=== PATIENT | female | born 1995 | race Caucasian/White ===

== ENCOUNTER → 2019-12-22 13:40 | Outpatient (BNVA) | payer MEDICAID, SELFPAY | PROVIDERS: Family Provider Family Medicine; PCP Family Medicine; Visit Provider Nurse Practitioner Family | DX: Z11.59 Encounter for screening for other viral diseases (principal) | CPT/HCPCS: 87635 ==

== ENCOUNTER → 2020-03-15 17:50 | Outpatient (BNVA) | payer OTHER, SELFPAY | PROVIDERS: Family Provider Family Medicine; PCP Family Medicine; Visit Provider Nurse Practitioner Family | DX: N39.0 Urinary tract infection, site not specified (principal) | CPT/HCPCS: 81000; 81025 ==

== ENCOUNTER → 2020-04-06 10:44 | Outpatient (BNVA) | payer MEDICAID, OTHER, SELFPAY | PROVIDERS: Family Provider Family Medicine; PCP Family Medicine; Visit Provider Nurse Practitioner Women's Health | DX: Z34.90 Encounter for supervision of normal pregnancy, unspecified, unspecified trimester (principal) | CPT/HCPCS: 81000 ==

== ENCOUNTER → 2020-04-24 14:58 | Outpatient (BNVA) | payer MEDICAID, SELFPAY | PROVIDERS: Family Provider Family Medicine; PCP Family Medicine; Visit Provider Obstetrics & Gynecology | DX: O99.211 Obesity complicating pregnancy, first trimester (principal); Z3A.10 10 weeks gestation of pregnancy | CPT/HCPCS: 80307; 81000; 85027; 86592; 86762; 86803; 86850; 86900; 87086; 87340; 87806 ==

== ENCOUNTER → 2020-05-02 14:26 | Outpatient (BNVA) | payer MEDICAID, OTHER, SELFPAY | PROVIDERS: Family Provider Family Medicine; PCP Family Medicine; Visit Provider Obstetrics & Gynecology | DX: Z34.90 Encounter for supervision of normal pregnancy, unspecified, unspecified trimester (principal) | CPT/HCPCS: 81000; 87491; 87591; 88175 ==

== ENCOUNTER → 2020-06-05 08:01 | Outpatient (BNVA) | payer MEDICAID, OTHER, SELFPAY | PROVIDERS: Family Provider Family Medicine; Visit Provider Nurse Practitioner Women's Health | DX: O23.40 Unspecified infection of urinary tract in pregnancy, unspecified trimester (principal); O99.320 Drug use complicating pregnancy, unspecified trimester | CPT/HCPCS: 80307; 81000; 87086 ==

== ENCOUNTER → 2020-07-03 09:22 | Outpatient (BNVA) | payer MEDICAID, OTHER, SELFPAY | PROVIDERS: Family Provider Family Medicine; Visit Provider Obstetrics & Gynecology | DX: Z34.90 Encounter for supervision of normal pregnancy, unspecified, unspecified trimester (principal) | CPT/HCPCS: 81000 ==

== ENCOUNTER → 2020-08-01 09:46 | Outpatient (BNVA) | payer MEDICAID, SELFPAY | PROVIDERS: Family Provider Family Medicine; Visit Provider Nurse Practitioner Women's Health | DX: O99.320 Drug use complicating pregnancy, unspecified trimester (principal); F12.90 Cannabis use, unspecified, uncomplicated; Z3A.24 24 weeks gestation of pregnancy | CPT/HCPCS: 81000 ==

== ENCOUNTER → 2020-08-27 09:54 | Outpatient (BNVA) | payer MEDICAID, SELFPAY | PROVIDERS: Family Provider Family Medicine; Visit Provider Obstetrics & Gynecology | DX: O99.320 Drug use complicating pregnancy, unspecified trimester (principal); O36.60X0 Maternal care for excessive fetal growth, unspecified trimester, not applicable or unspecified | CPT/HCPCS: 80307; 81000; 82950; 85025 ==

== ENCOUNTER → 2020-09-11 11:59 | Outpatient (BNVA) | payer MEDICAID, SELFPAY | PROVIDERS: Family Provider Family Medicine; Visit Provider Obstetrics & Gynecology | DX: O16.2 Unspecified maternal hypertension, second trimester (principal); O99.320 Drug use complicating pregnancy, unspecified trimester; O36.60X0 Maternal care for excessive fetal growth, unspecified trimester, not applicable or unspecified | CPT/HCPCS: 82570; 84156; 84315 ==

== ENCOUNTER → 2020-09-25 08:58 | Outpatient (BNVA) | payer MEDICAID, SELFPAY | PROVIDERS: Family Provider Family Medicine; Visit Provider Obstetrics & Gynecology | DX: O16.9 Unspecified maternal hypertension, unspecified trimester (principal); O36.60X0 Maternal care for excessive fetal growth, unspecified trimester, not applicable or unspecified; Z3A.00 Weeks of gestation of pregnancy not specified | CPT/HCPCS: 81000 ==

== ENCOUNTER → 2020-10-09 15:11 | Outpatient (BNVA) | payer MEDICAID, SELFPAY | PROVIDERS: Family Provider Family Medicine; Visit Provider Nurse Practitioner Women's Health | DX: O16.9 Unspecified maternal hypertension, unspecified trimester (principal); O36.60X0 Maternal care for excessive fetal growth, unspecified trimester, not applicable or unspecified; O99.320 Drug use complicating pregnancy, unspecified trimester | CPT/HCPCS: 81000 ==

== ENCOUNTER → 2020-10-22 13:04 | Outpatient (BNVA) | payer MEDICAID, SELFPAY | PROVIDERS: Family Provider Family Medicine; Visit Provider Obstetrics & Gynecology | DX: O16.9 Unspecified maternal hypertension, unspecified trimester (principal); O99.320 Drug use complicating pregnancy, unspecified trimester | CPT/HCPCS: 81000; 87081 ==

== ENCOUNTER 2020-10-28 19:20 | Outpatient (CLI) | payer MEDICAID, SELFPAY ==
[2020-10-28] VITALS (9 sets, daily range): BP systolic 112–148; BP diastolic 57–85; PULSE 88–112; RESP 17; TEMP 36.8–36.9; BMI 38.2
[2020-10-28 20:17] LABS: Basophils % 0.2 %; Eosinophils # 0.1 10^3/uL (0.0-0.8); Eosinophils % 0.8 %; Hematocrit 35.1 % (37.0-47.0); Hemoglobin 11.3 g/dL (11.5-15.3); Lymphocytes # 2.5 10^3/uL (0.8-4.8); Lymphocytes % 28.6 %; Mean Corpuscular HGB Conc 32.2 g/dL (30.0-36.0); Mean Corpuscular Hemoglobin 26.8 pg (28.0-34.0); Mean Corpuscular Volume 83.2 fL (81-99); Mean Platelet Volume 9.1 fL (7.4-10.4); Monocytes # 1.1 10^3/uL (0.2-0.9); Monocytes % 12.3 %; Neutrophils # 4.91 10^3/uL (1.8-7.7); Neutrophils % 57.1 %; Nucleated Red Blood Cells % 0 %; Platelet Count 247 10^3/cmm (130-400); Red Blood Count 4.22 10^6/uL (4.1-5.3); Red Cell Distribution Width 13.2 % (12.1-15.1); White Blood Count 8.6 10^3/uL (4.0-10.0)
[2020-10-28 20:24] LABS: Add Urine Microscopic? YES; Bilirubin Urine Neg (Negative); Blood Urine Neg (Negative); Glucose Urine UA Norm (Normal); Ketones Urine Negative (Negative); Leukocyte Esterase Urine Negative (Negative); Nitrate Urine Negative (Negative); Protein Urine Neg (Negative); Urine Color Yellow (Yellow); Urobilinogen Urine Norm (Negative); pH Urine 7 (5-7)
[2020-10-28 20:26] LABS: Amorphous Sediment Urine 4+ /hpf; Bacteria Urine TRACE /hpf; RBC Urine 0-4 /hpf (0-2); Squamous Epithelial Cell Urine 0-4 /hpf (0-5); WBC Urine 0-4 /hpf (0-5)
[2020-10-28 20:27] LABS: Add Urine Culture? No
[2020-10-28 20:36] LABS: Alanine Aminotransferase 8 U/L (0-33); Albumin Level 3.4 g/dL (3.5-5.2); Alkaline Phosphatase 110 IU/L (35-105); Anion Gap 11.8 (5-19); Aspartate Amino Transferase 11 U/L (0-32); Blood Urea Nitrogen 6 mg/dL (6-20); Calcium 8.5 mg/dL (8.5-10.5); Carbon Dioxide 24 mmol/L (22-29); Chloride 107 mmol/L (98-107); Globulin 2.7 g/dL (1.3-4.6); Glomerular Filtration Rate 122.8 mL/min (90-130); Glucose 74 mg/dL (65-115); Osmolality Calculated 284 mOsm/kg (285-295); Potassium 3.8 mmol/L (3.5-5.1); Sodium 139 mmol/L (136-145); Total Bilirubin 0.2 mg/dL (0.15-1.2); Total Protein 6.1 g/dL (6.6-8.7)
[2020-10-28 20:38] LABS: UPRO/UCREAT Ratio 0.08 mg/mg CR; Urine Creatinine 95 mg/dL (28-217); Urine Protein Random 8 mg/dL
== END 2020-10-28 21:18 | disposition home or self-care (01) ==
LOC: OPOB 19:22 → OBGYN 19:23
PROVIDERS: Family Provider Family Medicine; Visit Provider Obstetrics & Gynecology
DX: O16.9 Unspecified maternal hypertension, unspecified trimester (principal); Z3A.00 Weeks of gestation of pregnancy not specified
CPT/HCPCS: 36415; 59025; 80053; 81001; 82570; 84156; 84550; 85025; 99211

== ENCOUNTER 2020-10-30 16:40 | Inpatient (IN) | payer MEDICAID, SELFPAY ==
[2020-10-30] VITALS (13 sets, daily range): BP systolic 104–141; BP diastolic 54–87; PULSE 65–120; RESP 17; TEMP 36.5–36.7; O2SAT 100; BMI 38.0
--- NOTE | 2020-10-30 17:44 | P.HP_ITS ---
Providers/Chief Complaint Admitting Physician: Fariba Jean Baptiste MD Primary Care Provider: Arslan Levi MD Chief Complaint: induction, Gestational Hypertension History of Present Illness Gautam Hutson is a 25 year old female at 37 4/7 weeks who presents for induction of labor at term for gestational hypertension. Her is complicated by gestational hypertension starting at 30 weeks, GBS positive and marijuana use. Her blood pressures have been labile and she has been on bedrest. Today, all of her blood pressures are elevated. She was sent from the clinic for induction of labor Review of Systems General: Reports: 10 or more systems reviewed and unremarkable except in HPI and below Medications/Allergies Home Medications Medication Instructions Recorded Confirmed Last Taken Type prenat.vits,agustin,bfw-kefm-bpkln 1 tab PO DAILY 04/06/20 10/30/20 10/27/20 History Allergies Allergy/AdvReac Type Severity Reaction Status Date / Time No Known Allergies Allergy Verified 10/30/20 12:09 PFSH Acute PFSH: Medical History No pertinent past medical history Denies diabetes, asthma, hypertension, seizures, DVT/PE. PMD: None-refer to Dr. Kim on 04/24/2020 Surgical History No pertinent past surgical history Family History Grandfather Diabetes Paternal Mother Hypertension Grandmother Stroke Maternal Denies family history of Colon cancer Ovarian cancer Heart disease Breast cancer Bleeding disorder Uterine cancer Thyroid disease Social History Additional social history: - Tobacco use: former-- quit mid March 2020-- was smoking 0.5-1PPD Alcohol use: Socially prior to Drug use: denies Vitals/I&O/Wt Last Vital Signs Temp 98.1 F 10/30/20 17:05 Pulse 95 10/30/20 17:36 BP 132/85 10/30/20 17:36 Physical Exam Const: COMMON NORMALS: no acute distress, average body habitus, patient oriented x3, no limitations, healthy appearing and alert GENERAL APPEARANCE: cooperative, comfortable, well kempt and well developed ORIENTATION/CONSCIOUSNESS: Yes awake, Yes oriented to person, Yes oriented to place and Yes oriented to time Neck/C-Spine: COMMON NORMALS: full ROM and supple Resp: COMMON NORMALS: normal respiratory effort EFFORT & INSPECTION: Yes able to speak in complete sentences GI: COMMON NORMALS: Soft to palpation and non-tender Extremity: NARRATIVE EXTREMITY EXAM: 1+ pedal edema Psych: COMMON NORMALS: mental status grossly normal, Normal thought process present, cooperative and normal affect APPEARANCE: Yes grossly normal and Yes well kempt ATTITUDE: Yes calm and Yes engaged ACTIVITY/MOTOR BEHAVIOR: Yes appropriate eye contact SPEECH: Yes normal speech A&P Assessment and plan (1) Elevated blood pressure affecting , antepartum: plan induction of labor with cytotec and then pitocin anticipate will watch for worsening BP or signs of preeclampsia Status: Acute (2) Drug use affecting : Status: Acute (3) Supervision of normal : Status: Acute Attestations Medical Necessity Statement*: she will be delivering. she will be here for two midnights. 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
[2020-10-30] MEDS: acetaminophen 325 mg Tablet 650 MG PO (18:03)
[2020-10-30 18:04] LABS: Basophils % 0.1 %; Eosinophils % 0.2 %; Hematocrit 35.3 % (37.0-47.0); Hemoglobin 11.4 g/dL (11.5-15.3); Lymphocytes # 2.1 10^3/uL (0.8-4.8); Lymphocytes % 23.3 %; Mean Corpuscular HGB Conc 32.3 g/dL (30.0-36.0); Mean Corpuscular Hemoglobin 26.6 pg (28.0-34.0); Mean Corpuscular Volume 82.3 fL (81-99); Mean Platelet Volume 9.2 fL (7.4-10.4); Monocytes # 0.8 10^3/uL (0.2-0.9); Monocytes % 9.1 %; Neutrophils # 5.84 10^3/uL (1.8-7.7); Neutrophils % 66.5 %; Nucleated Red Blood Cells % 0 %; Platelet Count 245 10^3/cmm (130-400); Red Blood Count 4.29 10^6/uL (4.1-5.3); Red Cell Distribution Width 13.2 % (12.1-15.1); White Blood Count 8.8 10^3/uL (4.0-10.0)
[2020-10-30] MEDS: miSOPROStol 100 mcg tablet 25 MCG VAGINAL ×2 (18:04→22:45)
[2020-10-30] MEDS: ampicillin 2,000 MG in sodium chloride 0.9% (plus) 50 ML 100 MG IV (18:52)
[2020-10-30 19:21] LABS: Amphetamines Screen Urine Negative (Negative); Barbiturates Screen Urine Negative (Negative); Benzodiazepines Screen Urine Negative (Negative); Cocaine Screen Urine Negative (Negative); Opiate Screen Urine Negative (Negative); PCP Screen Urine Negative (Negative); THC Screen Urine Negative (Negative)
[2020-10-30] MEDS: lactated ringers 1,000 ML 999 ML IV (20:00)
[2020-10-30] MEDS: ampicillin 1,000 MG in sodium chloride 0.9% (plus) 50 ML 100 MG IV (22:39)
[2020-10-31] VITALS (58 sets, daily range): BP systolic 114–141; BP diastolic 57–91; PULSE 59–95; RESP 15–18; TEMP 36.1–36.7; O2SAT 98–100
[2020-10-31] MEDS: ampicillin 1,000 MG in sodium chloride 0.9% (plus) 50 ML 100 MG IV ×6 (02:23→23:29)
[2020-10-31] MEDS: oxytocin 30 UNIT/500 ML BAG IV (03:10)
--- NOTE | 2020-10-31 03:28 | PC.NURSE ---
D%LR running at 125ml/ hr at start of shift
[2020-10-31] MEDS: dextrose 5%-lactated ringers 1,000 ML 125 ML IV ×2 (03:52→12:57)
--- NOTE | 2020-10-31 09:14 | P.PN_ITS ---
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 she denies any headache. She received two doses of cytotec and then was bernardo about every 2-3 minutes. She was started on low dose pitocin instead. Her cervix is 4/90/-3 Labor: Station: -3 Amniotic Membrane Status: Intact Monitor Mode: Palpation Contraction Pattern: Regular Status: Category I Vitals/I&O/Wt Last Vital Signs Temp 97.3 F L 10/31/20 08:35 Pulse 91 10/31/20 09:11 Resp 16 10/31/20 07:38 BP 132/91 10/31/20 09:11 Pulse Ox 100 10/30/20 20:05 10/30/20 10/31/20 10/31/20 22:59 06:59 14:59 Intake Total 499.5 / 499.5 609.317 / 1108.817 50 / 50 Balance 499.5 / 499.5 609.317 / 1108.817 50 / 50 Weight last 48 hrs Weight 236 lb Physical Exam Const: COMMON NORMALS: no acute distress, average body habitus, patient oriented x3, no limitations, healthy appearing, alert and well nourished GENERAL APPEARANCE: cooperative, comfortable, well kempt and well developed ORIENTATION/CONSCIOUSNESS: Yes awake, Yes oriented to person, Yes oriented to place and Yes oriented to time Neck/C-Spine: COMMON NORMALS: full ROM and supple Resp: COMMON NORMALS: normal respiratory effort EFFORT & INSPECTION: Yes able to speak in complete sentences GI: COMMON NORMALS: Soft to palpation and non-tender PALPATION: Yes Soft to palpation Extremity: COMMON NORMALS: no clubbing, cyanosis or edema Neuro: COMMON NORMALS: patient oriented x3 SENSORIUM/ORIENTATION: Yes alert, Yes oriented to person, Yes oriented to place and Yes oriented to time Psych: COMMON NORMALS: mental status grossly normal, Normal thought process present, cooperative, normal affect and speech normal APPEARANCE: Yes well kempt ATTITUDE: Yes calm and Yes engaged SPEECH: Yes normal speech THOUGHT PROCESS: Normal thought process present Data : 10/30/20 17:50 A&P Assessment and plan (1) GBS (group B Streptococcus carrier), +RV culture, currently : Status: Acute (2) Gestational [-induced] hypertension without significant proteinuria, third trimester: continue to monitor blood pressures anticipate Status: Acute (3) Drug use affecting : marijuana positive Status: Acute Attestations Medical Necessity Statement*: The patient will deliver her baby. she will be here two midnights. 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
[2020-10-31] MEDS: acetaminophen 325 mg Tablet 650 MG PO (12:56)
[2020-10-31] MEDS: miSOPROStol 100 mcg tablet 25 MCG VAGINAL ×2 (19:10→23:58)
[2020-11-01] VITALS (62 sets, daily range): BP systolic 108–146; BP diastolic 58–104; PULSE 61–113; RESP 16–18; TEMP 36.1–37.1; O2SAT 97–100
[2020-11-01] MEDS: dextrose 5%-lactated ringers 1,000 ML 125 ML IV ×2 (04:24→18:36)
[2020-11-01] MEDS: ampicillin 1,000 MG in sodium chloride 0.9% (plus) 50 ML 100 MG IV ×3 (04:25→13:51)
[2020-11-01] MEDS: oxytocin 30 UNIT/500 ML BAG IV (04:33)
--- NOTE | 2020-11-01 13:01 | P.PN_ITS ---
Subjective Subjective: Interval history: 25 year old female at 37 4/7 weeks who presents for induction of labor at term for gestational hypertension. Vitals/I&O/Wt Last Vital Signs Temp 97.9 F 11/01/20 12:40 Pulse 71 11/01/20 12:47 Resp 16 11/01/20 10:23 BP 140/93 11/01/20 12:47 Pulse Ox 98 11/01/20 10:23 10/31/20 11/01/20 11/01/20 22:59 06:59 14:59 Intake Total 573.75 / 1759.50 661.233 / 2420.733 68.117 / 68.117 Balance 573.75 / 1759.50 661.233 / 2420.733 68.117 / 68.117 Weight last 48 hrs Weight 107.048 kg Physical Exam Narrative: EXAM NARRATIVE: GA: Alert and oriented ?3. Lungs: Clear to auscultation bilaterally. Heart: Regular rhythm and rate. Abdomen: Gravid, full the height equals dates, nontender. 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 Extremities: no edema, no cyanosis, no calves pain. heart tracing: Basal rate: 140's bpm, Variability: Moderate, Accelerations: Present, Decelerations: Absent, Contraction: q4 min Data : 10/30/20 17:50 A&P Assessment and plan (1) Gestational [-induced] hypertension without significant pro teinuria, third trimester: Slow progress of labor, oxytocin increased to high dose protocol. heart tracing category 1, scalp stimulation present. 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
[2020-11-01] MEDS: lactated ringers 1,000 ML 999 ML IV ×2 (13:12→14:30)
--- NOTE | 2020-11-01 14:44 | P.ANESASSM_ITS ---
Pre-Anesthetic Assessment Pre-Anesthetic Assessment: Height/Weight: Height 1.68 m Weight 107.048 kg Temp Pulse Resp BP Pulse Ox 97.9 F 71 16 130/72 100 11/01/20 12:40 11/01/20 14:42 11/01/20 10:23 11/01/20 14:42 11/01/20 14:25 Was Beta Aleksandr taken within 24 hours: N/A Was Clonidine taken within 24 hours: N/A Social: Social History: No alcohol and No tobacco Exam: Pre-Anes Outpt Exam: alert, oriented x 3, clear to auscultation bilaterally and regular rate & rhythm Airway: Submandibular: WNL Cervical ROM: WNL MP: 2 Dentition: Full History/ROS: No significant history except as noted Anesthetic Plan: ASA status: 2 Anesthesia: Regional (specify below) (Labor epidural) Risk of > 500 ml blood loss (7ml/kg in children): No Meds/Allergies Current Medications: Current Medications Generic Name Dose Route Start Last Admin Trade Name Freq PRN Reason Stop Dose Admin Acetaminophen 650 mg 10/30/20 17:27 10/31/20 12:56 Acetaminophen 32 5 Mg Tablet PO 650 mg Q6H PRN Administration Mild pain or temp > 100.4 Dextrose/Lactated Ringer's 1,000 mls @ 125 m ls/hr 10/30/20 17:30 11/01/20 04:24 Dextrose 5%-Lact ated Ringers IV 125 mls/hr .Q8H YUMIKO Administration Lactated Ringer's 1,000 mls @ 999 m ls/hr 10/30/20 17:27 11/01/20 13:12 Lactated Ringers IV 999 mls/hr .Q1H1M PRN Administration Per L&D Rescitati on Protocol Ampicillin Sodium 1,000 mg/ 50 mls @ 100 mls/ hr 10/30/20 22:30 11/01/20 13:52 Sodium Chloride IV Not Given Q4H YUMIKO Protocol Oxytocin 30 unit in 500 ml s @ 1 mls/hr 11/01/20 04:30 11/01/20 13:15 Pitocin IV 22 milliunit/min .Q24H YUMIKO 22 mls/hr Titration Protocol 1 MILLIUNIT/MIN Ropivacaine 200 mg in 100 mls @ 13 mls/hr 11/01/20 13:15 11/01/20 14:21 Naropin Premix EPIDURAL 13 mls/hr .Q7H42M YUMIKO Administration Misoprostol 25 mcg 10/31/20 23:45 10/31/20 23:58 Misoprostol 100 Mcg Tablet VAGINAL 25 mcg ONCE PRN Administration INDUCTION OF LABO R PFSH Anesthesia PFSH: Medical History No pertinent past medical history Denies diabetes, asthma, hypertension, seizures, DVT/PE. PMD: None-refer to Dr. Kim on 04/24/2020 Surgical History No pertinent past surgical history Family History Grandfather Diabetes Paternal Mother Hypertension Grandmother Stroke Maternal Denies family history of Colon cancer Ovarian cancer Heart disease Breast cancer Bleeding disorder Uterine cancer Thyroid disease Social History Additional social history: - Tobacco use: former-- quit mid March 2020-- was smoking 0.5-1PPD Alcohol use: Socially prior to Drug use: denies Female Reproductive History: : 2 Data Anesthesia CBC & Chem 7: 10/30/20 17:50 Other Labs: Laboratory Results - last 48 hr 10/30/20 10/30/20 16:45 17:50 WBC 8.8 RBC 4.29 Hgb 11.4 L Hct 35.3 L MCV 82.3 MCH 26.6 L MCHC 32.3 RDW 13.2 Plt Count 245 MPV 9.2 Neut % (Auto) 66.5 Lymph % (Auto) 23.3 [place] % (Auto) 9.1 Eos % (Auto) 0.2 Baso % (Auto) 0.1 Neut # (Auto) 5.84 Lymph # (Auto) 2.1 [place] # (Auto) 0.8 Eos # (Auto) 0.0 Baso # (Auto) 0.0 Nucleated RBC % (auto) 0 Nucleated RBCs # 0.0 Urine Opiates Screen Negative Ur Barbiturates Screen Negative Ur Phencyclidine Scrn Negative Ur Amphetamines Screen Negative U Benzodiazepines Scrn Negative Urine Cocaine Screen Negative U Marijuana (THC) Screen Negative Cardiac Studies: No Data to Display
--- NOTE | 2020-11-01 14:45 | ANES.PROC ---
Anesthesia Procedures Procedure/Date: 11/01/20 Epidural: Time Out Performed: Yes Consents Signed: Procedure Consent Consent: requested by attending/covering physician, from patient, risks and benefits reviewed and patient agrees to proceed Lumbar Level: L3-L4 Epidural position: sitting Epidural procedure: sterile prep of area, 1% lidocaine to numb the area, 18 g needle, neg for paresthesia, test dose given, 1.5% xylocaine 1:200k epi, placed PCEA, no systemic response, sterile dressing applied, L.U.D. no apparent complications and 0.2% Ropiavacaine @ mls/hr (13) Additional Comments: MARLENE at 5cm, Cath at 10cm.
--- NOTE | 2020-11-01 18:25 | PM.PN ---
Subjective Subjective: Interval history: 25 year old female at 37 4/7 weeks who presents for induction of labor at term for gestational hypertension. Vitals/I&O/Wt Last Vital Signs Temp 98.1 F 11/01/20 18:19 Pulse 103 H 11/01/20 18:19 Resp 16 11/01/20 14:44 BP 133/87 11/01/20 18:19 Pulse Ox 100 11/01/20 14:25 11/01/20 11/01/20 11/01/20 06:59 14:59 22:59 Intake Total 661.233 / 2420.733 231.034 / 048.637 5810 / 3231.034 Balance 661.233 / 2420.733 231.034 / 483.638 0592 / 3231.034 Physical Exam Narrative: EXAM NARRATIVE: GA: Alert and oriented ?3. Lungs: Clear to auscultation bilaterally. Heart: Regular rhythm and rate. Abdomen: Gravid, full the height equals dates, nontender. 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 Extremities: no edema, no cyanosis, no calves pain. heart tracing: Basal rate: 140's bpm, Variability: Moderate, Accelerations: Present, Decelerations: variable, Contraction: q3min. Urinary Catheter Management^: Schmidt: Cath Placed During This Visit: yes Reason for Continuing Indwelling Catheter: Required Immobilization for Trauma or Surgery or Anesthesia Urinary Catheter Date of Insertion: 11/01/20 Urinary Catheter Time of Insertion: 15:29 Data : 10/30/20 17:50 A&P Assessment and plan (1) Gestational [-induced] hypertension without significant proteinuria, third trimester: Slow progress of labor, patient is fully dilated 0 to +1 station, heart tracing category 2, scalp stimulation present and reassuring. Continue with continuous monitoring continue to monitor blood pressures anticipate spontaneous vaginal delivery Status: Acute (2) GBS (group B Streptococcus carrier), +RV culture, currently : Status: Acute (3) Drug use affecting : marijuana positive Status: Acute Qualifiers: Trimester: third trimester Qualified Code(s): O99.323 - Drug use complicating , third trimester Attestations Medical Necessity Statement*: In my professional opinion per admitting diagnosis Coding Level of Care Code Acute Nutrition Worker for Chg Fwd Diagnoses Gestational [-induced] hypertension without significant proteinuria, third trimester O13.3 GBS (group B Streptococcus carrier), +RV culture, currently O99.820 Drug use affecting O99.323 Trimester: third trimester
--- NOTE | 2020-11-01 18:56 | P.PCNOB_ITS ---
Delivery Note: Date of delivery: November 01, 2020 Pre-delivery diagnoses: Preeclampsia Post-delivery diagnoses: Term delivered Preeclampsia Procedure: Vacuum assisted vaginal delivery Op report anesthesia: Epidural Delivering Physician: Kayden Morfin MD Estimated blood loss (mL): 300 Delivery: The patient was noted to be complete and pushing, so was placed in the dorsal lithotomy position, prepped and draped in the usual sterile fashion for a vaginal delivery. Pt. Noted to have epidural anesthesia. Decision was made to apply the Kiwi vacuum @ 37 weeks for repetitive variable decelerations and nonreassuring status. The mother was informed and asked for her consent for application of the vaccum. A cortez had been used to insure the bladder was emptied. Adequate anesthesia was confirmed. The edges of the cup of the Kiwi vacuum were placed approximately 3cm from the anterior fontanelle, and just at the edge of the posterior fontanelle. The center of the cup was placed over the flexion point. The edges of the cup were swept with a finger to ensure that no maternal tissues were entrapped. After correct placement of the cup was confirmed, vacuum pressure was raised to 500-600 mmHg. Gentle traction along the axis of the pelvic curve down then up, was applied in concert with maternal pushing. 1 # applications. 0# pop-offs. After head delivered, the vacuum pressure released and was taken off the baby's head. Pt. Noted to have epidural anesthesia. At [] the patient delivered a viable 37 weeks male infant weighing 3340 g with scores of 8 and 9 at one and five minutes, respectively. The vertex was delivered vacuum assisted over intact perineum. The patient was asked to push and the head delivered in the DONOVAN position, over an intact perineum. A nuchal cord was checked and 1 noted, and delivered through around head as necessary. The anterior shoulder delivered easily and the posterior shoulder followed. The remainder of the was easily delivered and the oropharynx and nasopharynx was again bulb suctioned. The infant was noted to have spontaneous cry and spontaneous movement of all four extremities. The cord was clamped x 2 and cut and noted to have 2 arteries and one vein. The infant was passed to the mother's abdomen where nursing personnel were in attendance. The placenta delivered intact spontaneously and the uterus was explored. Pitocin 20 units in 1L LR was initiated. Examination of the cervix, vagina and perineal areas were inspected for lacerations and did not reveal any lacerations. A vaginal pack was then placed. Examination of the perineum showed a bleeding first-degree laceration. The laceration was repaired with 3-0 Vicryl in the normal fashion in a running non locking fashion to reapproximate the laceration in layers. The vaginal pack was then removed. The patient tolerated this procedure well, and recovered in L&D with her infant in their LDR room. All sponge and needle counts were correct. 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
[2020-11-01] MEDS: ibuprofen 800 mg tablet PO (21:01)
[2020-11-02] VITALS (8 sets, daily range): BP systolic 128–140; BP diastolic 60–91; PULSE 62–102; RESP 16–18; TEMP 36.3–36.7; O2SAT 96–100
[2020-11-02 07:13] LABS: Hematocrit 34.1 % (37.0-47.0); Hemoglobin 10.9 g/dL (11.5-15.3); Mean Corpuscular Hemoglobin 26.7 pg (28.0-34.0); Mean Corpuscular Volume 83.4 fL (81-99); Mean Platelet Volume 9.5 fL (7.4-10.4); Platelet Count 225 10^3/cmm (130-400); Red Blood Count 4.09 10^6/uL (4.1-5.3); Red Cell Distribution Width 13.2 % (12.1-15.1); White Blood Count 11.1 10^3/uL (4.0-10.0)
[2020-11-02] MEDS: lanolin oint 7 gm 1 APPLIC TOPICAL (09:36)
[2020-11-02] MEDS: ibuprofen 800 mg tablet PO ×2 (10:22→16:37)
[2020-11-02] MEDS: prenatal vitamin Capsule 1 CAP PO (10:22)
[2020-11-02] MEDS: docusate sodium 100 mg Capsule PO (10:22)
--- NOTE | 2020-11-02 17:09 | PM.OBGYDC ---
Discharge Providers PRE ALGEBRA TEACHER Date of Admission: 10/30/20 16:40 Date of Discharge: 11/02/20 Attending Provider at Admission: Fariba Jean Baptiste MD Attending Provider at Discharge: Fariba Jean Baptiste MD Primary Care Provider: Arslan Levi MD Diagnoses at Discharge Discharge Diagnosis (1) Gestational [-induced] hypertension without significant proteinuria, third trimester: Status: Acute (2) GBS (group B Streptococcus carrier), +RV culture, currently : Status: Acute Permanent problem details: continue with prophylaxis (3) Drug use affecting : Status: Acute Qualifiers: Trimester: third trimester Qualified Code(s): O99.323 - Drug use complicating , third trimester Reason for Visit Reason for Visit: induction, Gestational Hypertension Hospital Course Hospital Course Gautam Hutson is a 25 year old female presented for induction of labor for gestational hypertension at 37 4/7 weeks. Her is complicated by gestational hypertension starting at 30 weeks, GBS positive and marijuana use. Her blood pressures have been labile and she has been on bedrest. Today, all of her blood pressures are elevated. She was sent from the clinic for induction of labor. HPI: Received appropriate care. Daily vitamins since start of care. labs have all been normal, including negative for HIV. She was found positive for Group B Strep screening at 36 weeks. She has gained approximately 26 lbs throughout the . Glucose tolerance screening for gestational diabetes was negative. She had slow progress of labor, 2 with vacuum assisted vaginal delivery due to nonreassuring status. She delivered a male with 1 nuchal cord, Apgars 8/9 with a birthweight at 3340 g. observation has been uneventful. Blood pressures have been normal during the observation. Information Peripartum Data: Delivery Method: Vaginal Physical Exam Narrative: EXAM NARRATIVE: GA; alert and oriented x 3 HEENT: normal Breasts: engorged Nipples - skin intact Lungs; clear to auscultation Heart: regular rhythm, no murmurs. Abd: Appropriately tender. BS+. Uterine fundus below umbilicus. No Fundal Tenderness. Perineum: normal lochia. Extremities: no edema, no cyanosis, no tenderness. Urinary Catheter Management^: Schmidt: Cath Placed During This Visit: yes, but has since been removed by the nurse Reason for Continuing Indwelling Catheter: Required Immobilization for Trauma or Surgery or Anesthesia Urinary Catheter Date of Insertion: 11/01/20 Urinary Catheter Time of Insertion: 15:29 Date Urinary Catheter Removed: 11/01/20 Time Urinary Catheter Discontinued: 18:20 Discharge Data Data Completed and Pending: Labs from last 24 hours 11/02/20 06:46 WBC 11.1 H RBC 4.09 L Hgb 10.9 L Hct 34.1 L MCV 83.4 MCH 26.7 L MCHC 32.0 RDW 13.2 Plt Count 225 MPV 9.5 Vitals: Last Vital Signs Temp 97.9 F 11/02/20 16:37 Pulse 62 11/02/20 16:37 Resp 18 11/02/20 16:37 BP 139/91 11/02/20 16:37 Pulse Ox 100 11/02/20 16:37 Discharge Plan Discharge Patient Disposition: Home Condition: Stable Prescriptions: New ibuprofen 800 mg tablet 800 mg PO TID PRN (Reason: pain) Qty: 60 RF: 0 Iron (ferrous sulfate) 325 mg (65 mg iron) tablet 325 mg PO BID Qty: 60 RF: 0 Colace 100 mg capsule 100 mg PO BID Qty: 60 RF: 0 acetaminophen 325 mg capsule 325 mg PO Q4H PRN (Reason: fever or pain) Qty: 60 RF: 0 Continued prenat.vits,agustin,otr-tzte-tauov Tablet 1 tab PO DAILY RF: 0 Discharge Orders: Discharge Order (Routine); Ordered 11/02/20 Ordered By: Kayden Morfin Referrals: Cherie French MD [Physician] - 12/12/20 12:00 pm (Your 6 week appointment has been scheduled for 12/11/2020 at 12:[address] Aguilera.) Discharge Diet: Usual diet Discharge Activity: Increase activity as tolerated Patient Instructions: Depression (GEN), Breast Care for the Breast Feeding Mother (DC), Vaginal Delivery (DC), Pre-eclampsia and Eclampsia (DC), OB Discharge Report, OB Food/Drug Interaction Guide, Opioid Safety, OB Vaginal Deliveries Activity Restrictions/Additional Instructions: 1. Please call [facility] [place] [facility] on next working day to make your appointment in 6 weeks. 2. Please stay home until you come back to the clinic on first post-operative check up. 3. Please follow instructions on your medications CAREFULLY. 4. If you have abdominal incision, do not cover it unless dressing is necessary because of drainage. OK to shower, but avoid bath. Leave steri-strips until they fall off. If they are still on one week after surgery, you may remove them. 5. If you had vaginal surgery or vaginal repair, Dr. Morfin may instruct you to take SITZ bath. 6. Yellow, blood tinged odorous vaginal discharge is usually normal after hysterectomy or vaginal surgeries. 7. No sexual intercourse, tampons, or douches until you are completely released from the post-operative care. 8. Avoid constipation by eating right and maybe using some Metamucil or Milk of Magnesia. 9. All prescription refills are given during the working hours. Please do no wait till it runs out. Call the clinic at [phone] before your medication runs out. The clinic will get in touch with your doctor to prescribe medications if necessary. 10. Please remain within 40 mile radius from our hospital because emergencies do happen now and then during the post-operative period. 11. If you have stairs at home, take one step at a time slowly and minimize the number of trips. It helps to stay in one floor for the next few days. No lifting except what you can lift by one hand until you are released from the post-operative care. 12. Driving is discouraged until you are well healed. It may be 3-4 weeks before you feel strong enough to drive. You should be able to turn and look through the rear window without pain and you should be able to push the brake pedal very hard without pain before you drive. No fast rules, but SAFETY should be your primary concern. DO NOT drive if you are on sedating medications such as narcotics. 13. Call the clinic (during working hours) to make urgent appointment or go to the Emergency room, if any of the following occurs: i. Vaginal bleeding becomes heavy, more than a period. ii. Incision becomes red and sore, or drains pus. iii. Your temperature is over 100.4 or you have chill. iv. IV site becomes red and swollen (a little ``knot?? is usually OK) v. Persistent nausea and vomiting vi. Persistent constipation or diarrhea vii. Rash or allergic reaction to medications. Discharge Attestations PRE ALGEBRA TEACHER Time Spent in Discharge Care*: greater than 30 min Coding Level of Care Code Acute Hourly Shift for Chg Fwd Diagnoses Gestational [-induced] hypertension without significant proteinuria, third trimester O13.3 GBS (group B Streptococcus carrier), +RV culture, currently O99.820 Drug use affecting O99.323 Trimester: third trimester
== END 2020-11-02 19:45 | disposition home or self-care (01) | DRG 807 ==
LOC: OPOB 16:42 → OBGYN 16:53
PROVIDERS: Obstetrics & Gynecology; Admitting Provider Obstetrics & Gynecology; PCP Family Medicine; Visit Provider Obstetrics & Gynecology
DX: O13.4 Gestational [pregnancy-induced] hypertension without significant proteinuria, complicating childbirth (principal); Z37.0 Single live birth; Z3A.37 37 weeks gestation of pregnancy; Z87.891 Personal history of nicotine dependence; O99.324 Drug use complicating childbirth; F12.90 Cannabis use, unspecified, uncomplicated; O99.824 Streptococcus B carrier state complicating childbirth; O76 Abnormality in fetal heart rate and rhythm complicating labor and delivery; O69.2XX0 Labor and delivery complicated by other cord entanglement, with compression, not applicable or unspecified; O70.0 First degree perineal laceration during delivery
CPT/HCPCS: 36415; 51702; 59025; 59409; 80306; 81000; 85025; 85027; 98960; J0290; J2795

== ENCOUNTER → 2020-12-18 16:05 | Outpatient (BNVA) | payer MEDICAID, SELFPAY | PROVIDERS: PCP Family Medicine; Visit Provider Nurse Practitioner Women's Health | DX: Z30.014 Encounter for initial prescription of intrauterine contraceptive device (principal) | CPT/HCPCS: 81025 ==

== ENCOUNTER → 2022-05-13 13:06 | Outpatient (BNVA) | payer SELFPAY | PROVIDERS: PCP Family Medicine; Visit Provider Clinical Nurse Specialist Adult Health | DX: Z01.89 Encounter for other specified special examinations (principal) ==

== ENCOUNTER 2022-09-24 07:07 | Day surgery (SDC) | payer OTHER, SELFPAY ==
[2022-09-22 09:32] VITALS: BMI 37.1
[2022-09-22 10:07] LABS: Basophils % 0.5 %; Eosinophils # 0.1 10^3/uL (0.0-0.8); Eosinophils % 1.2 %; Hematocrit 42.7 % (37.0-47.0); Hemoglobin 13.6 g/dL (11.5-15.3); Lymphocytes # 2.3 10^3/uL (0.8-4.8); Lymphocytes % 40.6 %; Mean Corpuscular HGB Conc 31.9 g/dL (30.0-36.0); Mean Corpuscular Hemoglobin 26.9 pg (28.0-34.0); Mean Corpuscular Volume 84.4 fl (81-99); Mean Platelet Volume 8.7 fL (7.4-10.4); Monocytes # 0.5 10^3/uL (0.2-0.9); Monocytes % 9.2 %; Nucleated Red Blood Cells % 0 %; Platelet Count 289 10^3/cmm (130-400); Red Blood Count 5.06 10^6/uL (4.1-5.3); Red Cell Distribution Width 12.8 % (12.1-15.1); White Blood Count 5.6 10^3/uL (4.0-10.0)
[2022-09-22 10:16] LABS: OR HCG Qualitative Urine Negative (Negative)
[2022-09-22 10:19] LABS: Urine Color Yellow (Yellow)
[2022-09-22 10:20] LABS: Add Urine Culture? Yes; Add Urine Microscopic? YES; Bacteria Urine 2+ /hpf; Bilirubin Urine Neg (Negative); Blood Urine 2+ (Negative); Glucose Urine UA Norm (Normal); Ketones Urine Negative (Negative); Leukocyte Esterase Urine Negative (Negative); Mucus Urine 1+ /hpf; Nitrate Urine Negative (Negative); Protein Urine Neg (Negative); RBC Urine 0-4 /hpf (0-2); Urine Appearance Clear (CLEAR); Urobilinogen Urine Norm (Negative); WBC Urine 0-4 /hpf (0-5); pH Urine 6 (5-7)
[2022-09-22 10:26] LABS: Alanine Aminotransferase 25 U/L (0-33); Albumin Level 4.2 g/dL (3.5-5.2); Alkaline Phosphatase 60 U/L (35-105); Anion Gap 11.2 (5-19); Aspartate Amino Transferase 14 U/L (0-32); Blood Urea Nitrogen 14 mg/dL (6-20); Calcium 8.5 mg/dL (8.5-10.5); Carbon Dioxide 25 mmol/L (22-29); Chloride 102 mmol/L (98-107); Creatinine Clr Calc Pharmacy 173.4115; Globulin 2.9 g/dL (1.3-4.6); Glomerular Filtration Rate 120.8 mL/min (90-130); Glucose 90 mg/dL (65-115); Osmolality Calculated 278 mOsm/kg (285-295); Potassium 4.2 mmol/L (3.5-5.1); Sodium 134 mmol/L (136-145); Total Bilirubin 0.2 mg/dL (0.15-1.2); Total Protein 7.1 g/dL (6.6-8.7)
--- NOTE | 2022-09-22 15:54 | ANES.PREANE2 ---
Pre-Anesthetic Assessment Height/Weight: Height 1.68 m Weight 104.326 kg Preop Diagnosis: Desire permanent sterilization Operation Date: 09/24/22 10:05 Proposed Procedures p Laparoscopic bilateral salpingectomy 92968,Z30.2(Bilateral) - Kayden Morfin MD Familial anesthetic complications: none Was Beta Aleksandr taken within 24 hours: N/A Was Clonidine taken within 24 hours: N/A Social Tobacco and No alcohol Exam alert, oriented x 3, clear to auscultation bilaterally and regular rate & rhythm Airway Submandibular: within normal limits Cervical ROM: within normal limits Mallampati: Class II Dentition: full Pulmonary Chronic Obstructive Pulmonary Disease CV/HEM Hypertension Neuropsych Anxiety and Depression Anesthetic Plan ASA status: 2 Anesthesia: General Medications/Allergies Home Medications Medication Instructions Recorded Confirmed Last Taken Type fluoxetine 20 mg capsule 20 mg PO DAILY #90 caps 03/13/22 09/22/22 09/22/22 Rx lisinopril 10 mg tablet 10 mg PO DAILY #30 tabs 08/18/22 09/22/22 09/22/22 Rx Allergies Allergy/AdvReac Type Severity Reaction Status Date / Time No Known Allergies Allergy Verified 09/22/22 09:31 PENDING SALE TO [facility] Anesthesia Medical History BMI 37.0-37.9, adult Hypertension Surgical History No pertinent past surgical history Family History Grandfather Diabetes Paternal Mother Hypertension Colon cancer Grandmother Stroke Maternal Denies family history of Ovarian cancer Heart disease Breast cancer Bleeding disorder Uterine cancer Thyroid disease Social History Smoking and tobacco status: former smoker Substance/Drug Use: never Number of children: 2 Female Reproductive History Date of last menstrual period: 09/15/22 Data Anesthesia 09/22/22 09:45 09/22/22 09:45 Short CBC 09/22/22 Range/Units 09:45 WBC 5.6 (4.0-10.0) 10^3/uL Hgb 13.6 (11.5-15.3) g/dL Hct 42.7 (37.0-47.0) % MCV 84.4 (81-99) fl Plt Count 289 (130-400) 10^3/cmm Neut % (Auto) 48.0 % Neut # (Auto) 2.70 (1.8-7.7) 10^3/uL BMP 09/22/22 09:45 Sodium 134 L Potassium 4.2 Chloride 102 Carbon Dioxide 25 BUN 14 Creatinine 0.6 Glucose 90 Calcium 8.5 Liver Function 09/22/22 Range/Units 09:45 Total Bilirubin 0.2 (0.15-1.2) mg/dL AST 14 (0-32) U/L ALT 25 (0-33) U/L Alkaline Phosphatase 60 (35-105) U/L Albumin 4.2 (3.5-5.2) g/dL Urine 09/22/22 Range/Units 09:45 Urine Color Yellow (Yellow) Urine Appearance Clear (CLEAR) Urine pH 6 (5-7) Ur Specific [place] 1.020 (1.005-1.030) Urine Protein Neg (Negative) Urine Glucose (UA) Norm (Normal) Urine Ketones Negative (Negative) Urine Nitrate Negative (Negative) Urine Bilirubin Neg (Negative) Ur Leukocyte Esterase Negative (Negative) Urine RBC 0-4 H (0-2) /hpf Urine WBC 0-4 H (0-5) /hpf Cardiac Studies: No Data to Display
[2022-09-24 07:21] VITALS: BP 153/114; PULSE 98; RESP 18; TEMP 36.1; O2SAT 97
[2022-09-24] MEDS: sodium chloride 0.9% 1,000 ML 30 ML IV (07:52)
[2022-09-24] MEDS: scopolamine 1.5 Patch 1 PATCH TRANSDERMA (07:52)
--- NOTE | 2022-09-24 07:52 | W.PM.OPSUD ---
Surgery/Procedure H&P Update DATE OF PROCEDURE: September 24, 2022 DATE H&P PERFORMED: 09/22/22 H&P UPDATE INFORMATION: I have reviewed H&P completed within last 30 days, I have examined patient prior to procedure and No changes to prior documentation PREOP DIAGNOSIS: Desire permanent sterilization PLANNED PROCEDURE: Operation Date: 09/24/22 08:40 Proposed Procedures p Laparoscopic bilateral salpingectomy 29020,Z30.2(Bilateral) - Kayden Morfin MD
[2022-09-24] MEDS: ceFAZolin 2,000 MG in sodium chloride 0.9% (plus) 50 ML 100 MG IV (08:20)
--- NOTE | 2022-09-24 08:33 | P.ANESUD_ITS ---
Pre-Anesthetic Update Pre-Anesthetic Assessment: Date of Surgery/Procedure: 09/24/22 Preop Jannie gnosis: Desire permanent sterilization Proposed Procedure: Operation Date: 09/24/22 08:40 Proposed Procedures p Laparoscopic bilateral salpingectomy 03980,Z30.2(Bilateral) - Kayden Morfin MD Any changes to Pre-Anesthetic Assessment?: No Last Intake: Intake Last Liquid Date 09/23/22 Last Liquid Time 21:00 Last Solid Date 09/23/22 Last Solid Time 21:00 Labs Last 48hrs: Short CBC 09/22/22 Range/Units 09:45 WBC 5.6 (4.0-10.0) 10^3/ uL Hgb 13.6 (11.5-15.3) g/dL Hct 42.7 (37.0-47.0) % MCV 84.4 (81-99) fl Plt Count 289 (130-400) 10^3/c mm Neut % (Auto) 48.0 % Neut # (Auto) 2.70 (1.8-7.7) 10^3/u L BMP 09/22/22 09:45 Sodium 134 L Potassium 4.2 Chloride 102 Carbon Dioxide 25 BUN 14 Creatinine 0.6 Glucose 90 Calcium 8.5 Liver Function 09/22/22 Range/Units 09:45 Total Bilirubin 0.2 (0.15-1.2) mg/dL AST 14 (0-32) U/L ALT 25 (0-33) U/L Alkaline Phosphata se 60 (35-105) U/L Albumin 4.2 (3.5-5.2) g/dL Urine 09/22/22 Range/Units 09:45 Urine Color Yellow (Yellow) Urine Appearance Clear (CLEAR) Urine pH 6 (5-7) Ur Specific Gravit y 1.020 (1.005-1.030) Urine Protein Neg (Negative) Urine Glucose (UA) Norm (Normal) Urine Ketones Negative (Negative) Urine Nitrate Negative (Negative) Urine Bilirubin Neg (Negative) Ur Leukocyte Radha ase Negative (Negative) Urine RBC 0-4 H (0-2) /hpf Urine WBC 0-4 H (0-5) /hpf Vitals: Temperature 97 F L 09/24/22 07:21 Temperature Source Temporal Artery S can 09/24/22 07:21 Pulse Rate 98 09/24/22 07:21 Respiratory Rate 18 09/24/22 07:21 Blood Pressure 153/114 09/24/22 07:21 Blood Pressure Patti n 127 09/24/22 07:21 Pulse Oximetry 97 09/24/22 07:21 Oxygen Delivery Me thod Room Air 09/24/22 07:55 Exam: Pre-Anes Outpt Exam: alert, oriented x 3, clear to auscultation bilaterally and regular rate & rhythm Cardiac Studies: No Data to Display
--- NOTE | 2022-09-24 09:10 | PM.OP ---
Operative Report Date of procedure: September 24, 2022 Pre-op diagnosis: Preop Diagnosis Desire permanent sterilization Post-op diagnosis: same Post-op findings: Normal pelvic anatomy Procedure done: Laparoscopic bilateral salpingectomy Specimens removed/disposition: Left and right fallopian tube Surgeon: Kayden Morfin MD Estimated blood loss: Less than 5 ml IV fluids (mL): 700 Urine output (mL): 300 Complications: None Condition: stable Procedure: After informed consent, the patient was taken to the operating room where general anesthesia was administered. She was placed in the dorsal lithotomy position and prepped and draped in sterile fashion. Pre-Procedure Time-Out verifying the correct patient identity, correct procedure verified with consent, correct site and side, correct patient position, availability of correct implants and any special equipment or requirements was performed and acknowledge by the OR team. The patient was examined under anesthesia and found to have a normal uterus with normal adnexa. A weighted speculum was placed in the vagina, and the anterior lip of cervix was grasped with the single toothed tenaculum. A uterine manipulator was advanced into the endocervical canal and uterus. The tenaculum was removed after uterine manipulator was secured. The speculum was removed from the vagina. An intraumbilical incision was made with a scalpel. While tenting up on the abdomen, a Verres needle was admitted into the intra-abdominal cavity. A saline drop test was performed and noted to be within normal limits. Pneumoperitoneum was attained with 4 liters of carbon dioxide. The Verres needle was removed. A 5 mm Opitc view trocar and sleeve were admitted into the abdomen and laparoscopic confirmation of location was achieved. A second incision was made 3 cm above the symphysis pubis, and a 5 mm trocar sleeves were admitted into the abdomen under direct laparoscopic visualization without complication. A survey revealed normal abdominal anatomy. A 5 mm blunt probe was advanced through the second trocar sleeve, and light manipulation of ovaries and uterus to assess the posterior aspects was performed. The pelvic survey shows normal uterus, left and right adnexa. The left ovary was noted with a normal size follicular cyst. The patient was placed into Trendelenburg position. The fallopian tubes were inspected bilaterally and the fimbriated ends of the fallopian tubes were visualized bilaterally. Attention was then directed to the right side. The fallopian tube and mesosalpinx were grasped and the underlying mesosalpinx was cauterized and cut using the Enseal device. Serial cauterization and cutting was used to separate the fallopian tube from the underlying mesosalpinx until it could be amputated cutting it approximated 2 cm from the cornua. Attention was then turned to the contralateral fallopian tube, which was removed in similar fashion. Both specimens were removed through the trocar and sent to pathology. The instruments were removed. The suprapubic trocar port was removed under direct visualization insuring good hemostasis. The carbon dioxide was allowed to escape from the abdomen. The intraumbilical trocar sleeve was withdrawn under visualization with laparoscope in the sleeve to insure hemostasis. The skin incisions were closed with 3-O Monocryl subcuticular stich and Dermabond. The instruments were removed from the vagina, and excellent hemostasis was noted. The patient tolerated the procedure well, and sponge, lap and needle count were correct times two. The patient was taken to the recovery room in good condition.
[2022-09-24 09:24] VITALS: BP 118/79; PULSE 90; RESP 15; TEMP 36.2; O2SAT 97
[2022-09-24 09:30] VITALS: BP 122/75; PULSE 84; RESP 18; O2SAT 97
[2022-09-24 09:45] VITALS: BP 120/88; PULSE 70; RESP 18; TEMP 36.3; O2SAT 100
[2022-09-24] MEDS: ondansetron 2 mg/ML SDV 2 mL 4 MG IVP (09:58)
[2022-09-24] MEDS: HYDROcodone-acetaminophen 5-325 mg Tablet 1 TAB PO (10:14)
[2022-09-24 10:16] VITALS: BP 118/71; PULSE 73; RESP 18; O2SAT 100
--- NOTE | 2022-09-24 14:58 | ANE.PACU2 ---
Inpatient post-anesthesia follow up: Airway intact: Yes Vital signs: Temperature 97.4 F Pulse Rate 73 Respiratory Rate 18 Blood Pressure 118/71 Pulse Oximetry 100 Oxygen Delivery Me thod Room Air Oxygen Flow Rate 7 Fraction of Inspir ed Oxygen Hydration adequate: Yes Nausea and vomiting: No Pain level: 2 Mental status: Baseline
== END 2022-09-24 10:34 | disposition home or self-care (01) ==
PROVIDERS: PCP Clinical Nurse Specialist Adult Health; Visit Provider Obstetrics & Gynecology
PROC: (CPT 58661; principal; 2022-09-24 08:30)
DX: Z30.2 Encounter for sterilization (principal); J44.9 Chronic obstructive pulmonary disease, unspecified; I10 Essential (primary) hypertension; F41.9 Anxiety disorder, unspecified; F32.A Depression, unspecified; Z87.891 Personal history of nicotine dependence
CPT/HCPCS: 58661; 36415; 80053; 81001; 81025; 84703; 85025; 86850; 86900; 87086; 88302; J0330; J0690; J1100; J2250; J2405; J2704; J2710; J3010; J3490; J7030

== ENCOUNTER → 2023-09-21 11:04 | Outpatient (BNVA) | payer OTHER, SELFPAY | PROVIDERS: PCP Clinical Nurse Specialist Adult Health; Visit Provider Clinical Nurse Specialist Adult Health | DX: I10 Essential (primary) hypertension (principal) | CPT/HCPCS: 80053; 85025 ==

== ENCOUNTER → 2023-10-08 15:44 | Outpatient (BNVA) | payer OTHER, SELFPAY | PROVIDERS: PCP Clinical Nurse Specialist Adult Health; Visit Provider Nurse Practitioner Women's Health | DX: Z12.4 Encounter for screening for malignant neoplasm of cervix (principal); Z01.419 Encounter for gynecological examination (general) (routine) without abnormal findings | CPT/HCPCS: 88175 ==

== ENCOUNTER → 2024-02-22 10:25 | Outpatient (BNVA) | payer OTHER, SELFPAY | PROVIDERS: PCP Clinical Nurse Specialist Adult Health; Visit Provider Nurse Practitioner | DX: R50.9 Fever, unspecified (principal) | CPT/HCPCS: 87426 ==

== ENCOUNTER → 2024-12-08 14:09 | Outpatient (BNVA) | payer OTHER, SELFPAY | PROVIDERS: PCP Clinical Nurse Specialist Adult Health; Visit Provider Clinical Nurse Specialist Adult Health | DX: T78.40XA Allergy, unspecified, initial encounter (principal); X58.XXXA Exposure to other specified factors, initial encounter | CPT/HCPCS: 86003; 86008 ==

== ENCOUNTER 2025-02-06 11:29 | Outpatient (CLI) | payer OTHER, SELFPAY | END 2025-02-06 11:30 | disposition home or self-care (01) | LOC: SLEEP 11:33 | PROVIDERS: PCP Clinical Nurse Specialist Adult Health; Visit Provider Internal Medicine Pulmonary Disease | DX: G47.33 Obstructive sleep apnea (adult) (pediatric) (principal); G47.36 Sleep related hypoventilation in conditions classified elsewhere | CPT/HCPCS: G0399 ==

== ENCOUNTER → 2025-04-05 07:12 | Outpatient (BNVA) | payer OTHER, SELFPAY | PROVIDERS: PCP Family Medicine; Visit Provider Family Medicine | DX: Z51.81 Encounter for therapeutic drug level monitoring (principal); Z13.6 Encounter for screening for cardiovascular disorders; Z13.1 Encounter for screening for diabetes mellitus; Z00.00 Encounter for general adult medical examination without abnormal findings; R53.81 Other malaise; R53.83 Other fatigue | CPT/HCPCS: 80053; 80061; 82306; 83036; 84443; 85025 ==